=== PATIENT | female | born 1955 | race Two or more races ===

== ENCOUNTER 2020-11-29 07:05 | Day surgery (SDC) | payer OTHER | END 2020-11-29 10:25 | disposition home or self-care (01) | LOC: AMB-ENDOS 07:05 | PROVIDERS: ATTEND Colon & Rectal Surgery | DX: D12.5 Benign neoplasm of sigmoid colon (principal); K64.8 Other hemorrhoids; Z12.12 Encounter for screening for malignant neoplasm of rectum ==

== ENCOUNTER 2021-01-03 07:12 | Day surgery (SDC) | payer OTHER | END 2021-01-03 12:15 | disposition home or self-care (01) | LOC: AMB-ENDOS 07:12 | PROVIDERS: ATTEND Colon & Rectal Surgery | DX: D12.2 Benign neoplasm of ascending colon (principal); Z12.11 Encounter for screening for malignant neoplasm of colon; Z20.822 Contact with and (suspected) exposure to COVID-19 ==

== ENCOUNTER 2023-12-31 06:13 | Day surgery (SDC) | payer OTHER ==
[2023-12-31] MEDS ORDERED: DIPHENHYDRAMINE HCL 50 MG/ML VIAL 1ML IV ONE (09:45)
[2023-12-31] MEDS ORDERED: fentaNYL CITRATE 50 MCG/ML AMPUL IV PUSH ONE (09:45)
[2023-12-31] MEDS ORDERED: ONDANSETRON HCL 2 MG/ML VIAL IV ONE (09:45)
[2023-12-31] MEDS ORDERED: MIDAZOLAM HCL 2 MG/2 ML VIAL IV ONE (09:45)
== END 2023-12-31 10:30 | disposition home or self-care (01) ==
LOC: AMB-ENDOS 06:13
PROVIDERS: ATTEND Colon & Rectal Surgery
DX: D12.0 Benign neoplasm of cecum (principal); D12.2 Benign neoplasm of ascending colon; D12.3 Benign neoplasm of transverse colon; K57.30 Diverticulosis of large intestine without perforation or abscess without bleeding; K64.8 Other hemorrhoids; Z88.1 Allergy status to other antibiotic agents; Z88.2 Allergy status to sulfonamides